=== PATIENT | female | born 1985 | race Caucasian/White ===

== ENCOUNTER 2021-08-15 11:23 | Outpatient (CLI) | payer OTHER | END 2021-08-15 12:20 | disposition home or self-care (01) | LOC: OBS/DEL 11:23 → NST 11:23 | PROVIDERS: ATTEND Obstetrics & Gynecology Maternal & Fetal Medicine | DX: Z34.83 Encounter for supervision of other normal pregnancy, third trimester (principal) ==

== ENCOUNTER 2021-08-23 13:19 | Outpatient (CLI) | payer OTHER | END 2021-08-23 13:40 | disposition home or self-care (01) | LOC: NST 13:19 | PROVIDERS: ATTEND Obstetrics & Gynecology Maternal & Fetal Medicine | DX: O36.5930 Maternal care for other known or suspected poor fetal growth, third trimester, not applicable or unspecified (principal) ==

== ENCOUNTER 2021-08-29 11:16 | Outpatient (CLI) | payer OTHER | END 2021-08-29 14:00 | disposition home or self-care (01) | LOC: NST 11:16 | PROVIDERS: ATTEND Obstetrics & Gynecology Maternal & Fetal Medicine | DX: O33.1 Maternal care for disproportion due to generally contracted pelvis (principal) ==

== ENCOUNTER 2021-09-05 09:10 | Outpatient (CLI) | payer OTHER ==
[2021-09-05] MEDS ORDERED: ADULT LOW DOSE81 M1 PO (14:35)
[2021-09-05] MEDS ORDERED: PRENATAL CAPLE1 EAC1 PO (14:35)
== END 2021-09-05 11:26 | disposition home or self-care (01) ==
LOC: NST 09:10
PROVIDERS: ATTEND Obstetrics & Gynecology Maternal & Fetal Medicine
DX: Z34.83 Encounter for supervision of other normal pregnancy, third trimester (principal)

== ENCOUNTER 2021-09-05 13:26 | Inpatient (IN) | payer OTHER ==
[~2021-09-05] VITALS: Ht 170.2 cm; Wt 74.4 kg
[2021-09-05] MEDS ORDERED: ADULT LOW DOSE81 M1 PO (14:35)
[2021-09-05] MEDS ORDERED: PRENATAL CAPLE1 EAC1 PO (14:35)
== END 2021-09-10 14:36 | disposition home or self-care (01) | DRG 788 ==
LOC: LDR 13:26 → O/R 09-07 09:47 → OB/GYN 09-07 10:40
PROVIDERS: ADMIT Obstetrics & Gynecology; ATTEND Obstetrics & Gynecology
PROC: 4A1HXFZ Monitoring of Products of Conception, Cardiac Rhythm, External Approach (ICD-10-PCS; 2021-09-07)
PROC: 10D00Z1 Extraction of Products of Conception, Low, Open Approach (ICD-10-PCS; principal; 2021-09-07 08:00)
DX: O14.94 Unspecified pre-eclampsia, complicating childbirth (principal); O36.5930 Maternal care for other known or suspected poor fetal growth, third trimester, not applicable or unspecified; Z3A.35 35 weeks gestation of pregnancy; Z37.0 Single live birth

== ENCOUNTER 2023-02-14 07:08 | Day surgery (SDC) | payer OTHER ==
[~2023-02-14 07:08] MED LIST: ADULT LOW DOSE81 M1 PO; PRENATAL CAPLE1 EAC1 PO
== END 2023-02-14 15:55 | disposition home or self-care (01) ==
LOC: CIR.AMB 07:08 → SURH 15:44 → EDSTATUS 15:45 → CIR.AMB 15:55
PROVIDERS: ATTEND Obstetrics & Gynecology Maternal & Fetal Medicine
DX: O02.1 Missed abortion (principal); Z20.822 Contact with and (suspected) exposure to COVID-19

== ENCOUNTER 2024-04-24 10:45 | Inpatient (IN) | payer OTHER ==
[~2024-04-24] VITALS: Ht 170.2 cm; Wt 3.2 kg
[2024-04-24 12:51] LABS: PH,URINE 7.5 (5.0-8.0); URINE APPEARANCE Clear; URINE BILIRRUBIN Negative (NEGATIVE); URINE BLOOD Negative; URINE COLOR Yellow; URINE GLUCOSE Negative (NEGATIVE); URINE LEUKOCYTE Negative; URINE NITRATE Negative; URINE PROTEIN Negative (NEGATIVE); URINE UROBILINOGEN 0.2 E.U./dl
[2024-04-24 12:53] LABS: HEMATOCRIT 33.9 % (36.0-45.00); HEMOGLOBIN 11.9 g/dL (12.0-15.00); MEAN CELL VOLUME 89.6 fL (80.00-100.00); MEAN CORPUSCULAR HEMOGLOBIN 31.4 pg (27.00-32.0); PLATELET COUNT 179 K/uL (150-450); RED BLOOD COUNT 3.78 M/uL (4.00-6.00); RED CELL DISTRIBUTION WIDTH 13.2 % (11.5-14.5)
[2024-04-24 12:56] LABS: URINE BACTERIA 547.7 uL (0.0-1933); URINE EPITHELIAL CELLS 6.1 uL (0.0-38.8); URINE WBC 2.3 uL (0.0-23.2)
[2024-04-24 13:05] LABS: URINE RBC 0.4 uL (0.0-20.8)
[2024-04-24 13:16] LABS: ALBUMIN 2.8 gm/dL (3.4-5.0); BILIRUBIN TOTAL 0.77 mg/dL (0.3-1.2); CALCIUM 9.3 mg/dL (8.5-10.1); CREATININE SERUM 0.61 mg/dL (0.55-1.02); GFR 110.98; GLOBULINA 3.7 G/DL (2.4-3.5); POTASSIUM 4.17 mEq/L (3.5-5.1); TOTAL PROTEIN 6.5 gm/dL (6.4-8.2)
[2024-04-24 13:18] LABS: INR < 0.93; PARTIAL THROMBOPLASTIN TIME 25.9 SECONDS (22.0-34.0); PROTHROMBIN TIME 9.4 SECONDS (9.0-11.5)
[2024-04-30] MEDS ORDERED: PRENATAL + DHA1 EAC1 PO (06:48)
[2024-04-30] MEDS ORDERED: OXYTOCIN 10 UNITS/ML VIAL IV NR (08:45)
[2024-04-30] MEDS ORDERED: CITRIC ACID/SODIUM CITRATE 30 ML BLIST.PACK PO NR (08:45)
[2024-04-30] MEDS ORDERED: CEFAZOLIN SODIUM 1,000 MG VIAL IV NR (08:45)
[2024-04-30] MEDS ORDERED: ERYTHROMYCIN BASE 1 GM TUBE OP NR (08:45)
[2024-04-30] MEDS ORDERED: CEFAZOLIN SODIUM 1,000 MG VIAL ONE (09:31)
[2024-04-30] MEDS ORDERED: OXYTOCIN 10 UNITS/ML VIAL ONE ×2 (09:31→13:19)
[2024-04-30] MEDS ORDERED: CHLORHEXIDINE GLUCONATE 120 ML BOTTLE TOP ONE (09:31)
[2024-04-30] MEDS ORDERED: ERYTHROMYCIN BASE 1 GM TUBE OP ONE (09:31)
[2024-04-30] MEDS ORDERED: CITRIC ACID/SODIUM CITRATE 30 ML BLIST.PACK PO ONE (09:32)
[2024-04-30] MEDS ORDERED: MEPERIDINE HCL/PF 50 MG/ML VIAL IM PRN (11:00)
[2024-04-30] MEDS ORDERED: OXYTOCIN 1,000 ML IV SCH (11:00)
[2024-04-30] MEDS ORDERED: IBUprofen 400 MG TABLET PO PRN (11:00)
[2024-05-01] MEDS ORDERED: OxyCODONE HCL/APAP UD (PERCOCET) PO PRN (08:15)
[2024-05-01 09:30] LABS: HEMATOCRIT 30.4 % (36.0-45.00); HEMOGLOBIN 10.7 g/dL (12.0-15.00); MEAN CELL VOLUME 91.2 fL (80.00-100.00); MEAN CORPUSCULAR HGB CONC 35.1 g/dl (32.0-36.0); PLATELET COUNT 154 K/uL (150-450); RED BLOOD COUNT 3.33 M/uL (4.00-6.00); RED CELL DISTRIBUTION WIDTH 12.9 % (11.5-14.5)
== END 2024-05-02 13:49 | disposition home or self-care (01) | DRG 788 ==
LOC: OB/GYN 04-30 06:17 → O/R 04-30 06:17 → OB/GYN 04-30 10:45
PROVIDERS: Obstetrics & Gynecology; Specialist; ADMIT Obstetrics & Gynecology Gynecology; ATTEND Obstetrics & Gynecology Gynecology
PROC: 4A1HXCZ Monitoring of Products of Conception, Cardiac Rate, External Approach (ICD-10-PCS; 2024-04-30)
PROC: 10D00Z1 Extraction of Products of Conception, Low, Open Approach (ICD-10-PCS; principal; 2024-04-30 11:00)
DX: O34.211 Maternal care for low transverse scar from previous cesarean delivery (principal); Z3A.39 39 weeks gestation of pregnancy; Z37.0 Single live birth; Z20.822 Contact with and (suspected) exposure to COVID-19

== ENCOUNTER 2024-05-08 18:10 | Emergency (ER) | payer OTHER ==
[~2024-05-08] VITALS: Ht 170.2 cm; Wt 65.8 kg
[~2024-05-08 18:10] MED LIST changes: +PRENATAL + DHA1 EAC1 PO
[2024-05-08] MEDS ORDERED: ZOVIRAX30 GM TOP (19:22)
== END 2024-05-08 19:32 ==
LOC: ER 18:12
DX: B00.89 Other herpesviral infection (principal)